=== PATIENT | male | born 1985 | race Caucasian/White ===

== ENCOUNTER 2021-09-19 17:05 | Emergency (ER) | payer BC, SELFPAY ==
--- NOTE | ~2021-09-19 | XR_ITS ---
XR elbow RT min 3V DATE: 09/19/2021 17:25 INDICATION: Elbow pain for one year, worsening recently. TECHNIQUE: 4 views COMPARISON: None FINDINGS: No fracture or dislocation or joint effusion. No periosteal reaction or bone destruction. J oint spaces are preserved. IMPRESSION: Negative Reviewed, dictated and finalized at location A. IMPRESSION: Negative
[2021-09-19 17:16] VITALS: BP 119/83; PULSE 87; RESP 18; TEMP 36.4; O2SAT 98
--- NOTE | 2021-09-19 17:44 | ED.UPPEXIN ---
HPI - Extremity Injury (Upper) General Chief Complaint: Extremity Problem,Nontraumatic Stated Complaint: Rt Elbow Pain Time Seen by Provider: 09/19/21 17:35 History of Present Illness HPI narrative: David Calderón is a 36 yo male with no PMH who [facility] complaints of right elbow pain who has pain at night to the point that he has difficulty sleeping. 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 EYES: Denies visual changes, redness, discharge. ENT: Denies rhinorrhea, congestion, sore throat, otalgia. CARDIOVASCULAR: Denies chest pain, palpitations, edema. RESPIRATORY: Denies dyspnea, wheezing, cough GASTROINTESTINAL: Denies abdominal pain, nausea, vomiting, diarrhea. GENITOURINARY: Denies dysuria, hematuria, abnormal discharge SKIN: Denies rash or itching. NEUROLOGIC: Denies numbness, or focal weakness. PSYCHIATRIC: Denies anxiety or depression. Right elbow pain that is probably due to repetitive work has some pain also in the left PMFSH Past Medical History Medical History No acute medical problems Social History Social History (Updated 09/19/21 @ 17:47 by Danni Payne CNP) Smoking packs per day: 0.5 Smoking cigarettes per day: 10.0 Smoking status: Current every day smoker Alcohol intake: current Comments At time of signature, I agree with nursing past medical, surgical, social and family history. There is no relevant family history pertinent to the presenting complaint. Exam Narrative: GENERAL: This is a well-nourished, well-developed patient, in mild distress. HEAD: normocephalic, atraumatic. EYES: Sclera clear/white. Vision is grossly intact. EARS: External ears normal. Hearing grossly intact. NOSE: External nose normal without nasal discharge, nares without redness, no rhinorrhea. THROAT: Mucous membranes moist, posterior pharynx NECK: Neck supple, non-tender CARDIOVASCULAR: Regular rate and rhythm without murmurs, gallops, or rubs. RESPIRATORY: Clear to auscultation. Breath sounds equal bilaterally. No wheezes, rales, or rhonchi. GASTROINTESTINAL: Not done SKIN: warm, intact with no suspicious lesions or rash, good texture and turgor. NEURO: awake, alert, and oriented to person, place and time. There were no obvious focal neurologic abnormalities. Steady gait EXTREMITIES: Normal range of motion. The elbow is minmally swollen but not deformed The range of motion is limited in all directions because of the pain. Supination and pronation of the forearm is somewhat painful.. BACK: Nontender without deformity Course Course Emergency Course: Right elbow pain; repetitive use injury X-ray shows no effusion or fracture or subluxation of elbow Ibuprofen 800 mg 1 3 times daily as needed for pain given instructions to wrap elbow with Juan wrap and at night put ice and elevate while he tries to sleep; declined muscle relaxants to help him sleep Level of Care: Express Care Visit Vital Signs Vital signs: Vital Signs Temperature 97.5 F L 09/19/21 17:16 Pulse Rate 87 09/19/21 17:16 Respiratory Rate 18 09/19/21 17:16 Blood Pressure 119/83 09/19/21 17:16 Pulse Oximetry 98 09/19/21 17:16 Temperature 97.5 F L 09/19/21 17:16 Pulse Rate 87 09/19/21 17:16 Respiratory Rate 18 09/19/21 17:16 Blood Pressure 119/83 09/19/21 17:16 Pulse Oximetry 98 09/19/21 17:16 MDM - Extremity Injury (Upper) Differential Diagnosis Differential diagnosis: Likely fracture of clavicle and other (Elbow effusion versus elbow fracture versus tendon injury versus soft tissue injury) Criti
== END 2021-09-19 17:53 | disposition home or self-care (01) ==
PROVIDERS: Emergency Provider Nurse Practitioner
DX: M77.8 Other enthesopathies, not elsewhere classified (principal); F17.210 Nicotine dependence, cigarettes, uncomplicated
CPT/HCPCS: 73080; 99213; G0463